=== PATIENT | male | born 1950 | race Caucasian/White ===

== ENCOUNTER 2017-01-23 13:18 | Emergency (ER) | payer BC, OTHER ==
[~2017-01-23] VITALS: Ht 180.3 cm; Wt 127.2 kg
[~2017-01-23 13:18] MED LIST: ASPI81TA28 PO; ATOR10TA82 PO; HYDR25TA5 PO; LSN40 PO; MULTTAB58 PO; OMEGA RED PO; TPRSR/100 PO
[2017-01-23 13:26] VITALS: TEMP 36.6; Ht 180.3 cm; Wt 127.2 kg
[2017-01-23] MEDS ORDERED: XYLOCAINE 1%/SOD BICARB 20 ML VIAL INFIL ONE (13:37)
[2017-01-23] MEDS ORDERED: CEFAZOLIN IV 1,000 MG in DEXTROSE 5% 50ML 50 ML IV STA (13:57)
--- NOTE | 2017-01-23 14:30 | DIAGNOSTIC IMAGING REPORT ---
LEFT MIDDLE FINGER 3 VIEWS HISTORY: Left finger injury. LEFT FINGER AMP/AVULSION COMPARISON: None. FINDINGS: There is no fracture or dislocation. Soft tissue laceration at the distal tip. No radiopaque foreign bodies. IMPRESSION: Soft tissue laceration at the distal tip of the left middle finger. No fracture or dislocation. Electronically signed by: Kamron Cuellar M.D. 01/23/2017 2:29 PM Dictated Date/Time: 01/23/2017 2:28 PM
[2017-01-23 15:20] VITALS: BP 133/73; PULSE 61; O2SAT 94
[2017-01-23] MEDS ORDERED: CEPH500C PO (15:35)
[2017-01-23] MEDS ORDERED: OXYC1TAB3 PO (15:35)
--- NOTE | 2017-01-23 16:40 | EMERGENCY ROOM VISIT NOTE ---
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 pt reports "the nail is hanging there and some of the finger too." happend at 1315 today while pt was at work. 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 He reports that his finger was crushed during the process. He was wearing a glove. He reports an injury to the fingertip without any significant bleeding. He rates his discomfort a 3 out of 10. The patient is certain that his tetanus immunization is up-to-date within the past 5-7 years. The patient is left-hand dominant. Review of Systems 10 system review was performed and was negative except for pertinent positives and negatives as indicated in history of present illness Past Medical/Surgical History Medical Problems: (1) Diverticulosis Colon (W/O Ment Of Hemorrhage) (2) Hx-Prostatic Malignancy (3) Hypertension Nos (4) Polyp Of Colon (5) Primary Osteoarthritis, Left Shoulder (6) Unspecified Sleep Apnea (7) Vitamin D Deficiency Nos Family History Unremarkable Social History Smoking Status: Never Smoker Alcohol Use: occasionally Drug Use: none Marital Status: Housing Status: lives with family Occupation Status: employed Current/Historical Medications Scheduled Aspirin (Aspirin Ec), 81 MG PO QAM Atorvastatin (Lipitor), 10 MG PO HS Cephalexin Monohydrate (Keflex), 500 MG PO QID Hydrochlorothiazide (Hydrochlorothiazide), 1 TAB PO QAM Lisinopril (Lisinopril), 1 TAB PO QAM Metoprolol Succinate (Metoprolol Succinate ER), 1 TAB PO QAM Multiple Vitamin (Multivitamin), 1 TAB PO QAM [[employer] Red], 1 TAB PO QAM Scheduled PRN Oxycodone Ir (Roxicodone Ir), 1-2 TAB PO Q4H PRN for Pain Allergies Coded Allergies: No Known Allergies (Verified , 01/23/17) Physical Exam Vital Signs Date Time Temp Pulse Resp B/P Pulse Ox O2 Delivery O2 Flow Rate FiO2 01/23/17 15:20 61 20 133/73 94 Room Air 01/23/17 13:26 36.6 80 18 185/98 99 Room Air Pain Rating (0-10): 0 Physical Exam CONSTITUTIONAL: Healthy and well nourished. Alert and oriented X 3 with positive affect. HEENT: Normocephalic, atraumatic. Pupils equal, round and reactive. MUSCULOSKELETAL: Examination of the left third finger shows a complex laceration of the fingertip. The laceration traverses transversely across the distal third of the nail plate, down through the tissue and across the digital pad. The resolving flap is attached on the ulnar tip of the finger. No active bleeding noted. The proximal nail plate is not subluxed. The underlying tuft is exposed. No tenderness to palpation of the DIP or PIP joints. Fingertip capillary refill is less than 2 seconds. INTEGUMENTARY: No rash or other significant dermatologic conditions noted. NEUROLOGIC: Left third fingertip is sensory intact. Medical Decision & Procedures ER Provider Diagnostic Interpretation: My interpretation of left third finger x-rays does not show any acute fractures , dislocations or radiopaque foreign bodies. Radiologist report is as follows: LEFT MIDDLE FINGER 3 VIEWS HISTORY: Left finger injury. LEFT FINGER AMP/AVULSION COMPARISON: None. FINDINGS: There is no fracture or dislocation. Soft tissue laceration at the distal tip. No radiopaque foreign bodies. IMPRESSION: Soft tissue laceration at the distal tip of the left middle finger. No fracture or dislocation. Medications Administered Medications (Trade) Dose Ordered Sig/Renata Route Start Time Stop Time Status Last Admin Dose Admin Cefazolin Sodium/ Dextrose (Ancef Iv/D5 50ml) 55 ml @ 100 mls/hr ONE STAT IV 01/23/17 13:57 01/23/17 14:29 DC 01/23/17 14:31 100 MLS/HR Procedure Laceration repair was performed under digital block anesthesia after receiving verbal consent from the patient. Using buffered 1% lidocaine without epinephrine, good digital block anesthesia was administered. At this point, the wound was then irrigated using pressure lavage using 2 L of normal saline. The wound was then approximated at the ulnar and lateral nail fold first, then the digital pad was further approximated using 4-0 nylon simple interrupted sutures. There was only nail plate on the flap was then carefully removed, and the wound was then further reirrigated. Using 4-0 chromic gut sutures, the underlying nail bed laceration was then approximated with good wound edge approximation. A bacitracin dressing was then applied. The patient tolerated the procedure well. ED Course Patient history and physical exam were performed. Nurse's notes were reviewed. IV access was established, and the patient was administered Ancef 1 g IV infusion. The patient initially refused any analgesics. X-rays of the left third finger were normal. At this point, I consult did Dr. Samano, orthopedic surgeon on-call, who provided additional guidance on wound edge approximation. Wound irrigation and suture repair was performed under digital block anesthesia. The patient was provided prescriptions for Keflex and OxyIR 5 mg. He was provided contact information for Dr. Samano for follow-up in one week at Dr. Samano's request. The patient was instructed to call his office sooner for any wound concerns or signs of infection, or may also return to the emergency department over the weekend as needed. The patient was happy with plan of care , voiced understanding of all discharge instructions, and denied any pain at the conclusion of my exam. Medical Decision Impression Primary Impression: Left long finger laceration, complex Additional Impression: Work related injury Departure Information Dispostion Home / Self-Care Prescriptions Oxycodone Ir (Roxicodone Ir) 5 Mg Tab 1-2 TAB PO Q4H Y for Pain, #15 TAB For Initial Treatment Prov: Kishore Rodriguez PA 01/23/17 Cephalexin Monohydrate (Keflex) 500 Mg Cap 500 MG PO QID for 7 Days, #28 CAP Prov: Kishore Rodriguez PA 01/23/17 Referrals Ben Samano MD Forms HOME CARE DOCUMENTATION FORM, IMPORTANT VISIT INFORMATION Patient Instructions My [facility] Additional Instructions Keep wound clean, covered with antibiotic ointment and dry. Ibuprofen 800 mg and/or Tylenol 1000 mg every 8 hours. You may also alternate these medications for more effective pain relief: Ibuprofen --4 HRS--> Tylenol --4 HRS--> ibuprofen --4 HRS--> Tylenol .... OxyIR if needed for worse pain. Do not drink alcohol or drive while taking OxyIR. Complete Keflex antibiotics as prescribed. Follow-up with Dr. Samano in 7 days for recheck. Call his office sooner, or return to the emergency department, for any signs of developing infection. Problem Qualifiers
== END 2017-01-23 15:55 | disposition home or self-care (01) ==
LOC: C.EDB 13:20 → C.EDD 15:55
DX: S61.318A Laceration without foreign body of other finger with damage to nail, initial encounter (principal); W45.8XXA Other foreign body or object entering through skin, initial encounter; Y92.89 Other specified places as the place of occurrence of the external cause; Y99.0 Civilian activity done for income or pay; I10 Essential (primary) hypertension; K57.30 Diverticulosis of large intestine without perforation or abscess without bleeding; M19.012 Primary osteoarthritis, left shoulder; G47.30 Sleep apnea, unspecified; Z86.010 Personal history of colon polyps; Z85.46 Personal history of malignant neoplasm of prostate; Z79.82 Long term (current) use of aspirin; Z79.899 Other long term (current) drug therapy

== ENCOUNTER → 2017-01-30 | Outpatient (CLI) | payer OTHER, BC ==
[~2017-01-30] MED LIST changes: +CEPH500C PO; +OXYC1TAB3 PO
--- NOTE | 2017-01-30 14:23 | DIAGNOSTIC IMAGING REPORT ---
LEFT THIRD FINGER 3 VIEWS CLINICAL HISTORY: Laceration. FINDINGS: 3 views of the left third finger are compared to study dated 01/23/2017. The skeletal structures are well mineralized. No fracture is seen. The third metacarpophalangeal and interphalangeal joints are maintained. Mild soft tissue swelling is seen in the tip of the third finger and a cutaneous defect is again noted consistent with laceration. No radiodense foreign body is identified. IMPRESSION: 1. Soft tissue injury/laceration at the tip of the third finger, similar in appearance to 01/23/2017. No radiodense foreign body is identified. 2. No fracture is seen. Electronically signed by: Anibal Navarrete M.D. 01/30/2017 2:21 PM Dictated Date/Time: 01/30/2017 2:20 PM
== END | disposition home or self-care (01) ==
LOC: C.RDSM 14:10
PROVIDERS: ATTEND Physician Assistant
DX: S61.218A Laceration without foreign body of other finger without damage to nail, initial encounter (principal); X58.XXXA Exposure to other specified factors, initial encounter

== ENCOUNTER → 2017-03-11 | Outpatient (CLI) | payer OTHER, BC ==
[~2017-03-11] MED LIST changes: -ATOR10TA82 PO; +ATOR10TA88 PO; -CEPH500C PO
--- NOTE | 2017-03-11 13:46 | DIAGNOSTIC IMAGING REPORT ---
LEFT FINGER(S) MIN 2 VIEWS HISTORY:66 yearsMaleLEFT 3RD FINGER LACERATION COMPARISON: 01/30/2017 and 525 left finger radiographs. TECHNIQUE: Frontal, oblique and lateral views of the left third digit. FINDINGS: The previously noted soft tissue laceration of the distal third digit is no longer identified. No soft tissue defect or radiopaque foreign body is identified. There is no acute fracture or dislocation. Mild degenerative changes are seen within the interphalangeal and metacarpal phalangeal joints. There is mild osteoarthritis of the triscaphe joint and first carpometacarpal joint. IMPRESSION: 1. No acute fracture or dislocation. 2. No soft tissue laceration or radiopaque foreign body. 3. Mild degenerative changes of the wrist and hand. The above report was generated using voice recognition software. It may contain grammatical, syntax or spelling errors. Electronically signed by: Quan Hernandez M.D. 03/11/2017 1:45 PM Dictated Date/Time: 03/11/2017 1:43 PM
== END | disposition home or self-care (01) ==
LOC: C.RDSM 13:19
PROVIDERS: ATTEND Physician Assistant
DX: S61.313D Laceration without foreign body of left middle finger with damage to nail, subsequent encounter (principal); X58.XXXD Exposure to other specified factors, subsequent encounter

== ENCOUNTER → 2017-06-17 | Outpatient (CLI) | payer BC, OTHER ==
[~2017-06-17] VITALS: Ht 180.3 cm; Wt 125.5 kg
[2017-06-17 13:23] VITALS: BP 164/93; PULSE 65; Ht 180.3 cm; Wt 125.5 kg
[2017-06-17 13:24] VITALS: BP 157/89; PULSE 62
== END | disposition home or self-care (01) ==
LOC: C.NEUR 12:52
PROVIDERS: ATTEND Physician Assistant Medical
DX: G47.30 Sleep apnea, unspecified (principal); I10 Essential (primary) hypertension; R20.0 Anesthesia of skin

== ENCOUNTER → 2017-12-31 | Outpatient (CLI) | payer BC ==
[~2017-12-31] MED LIST changes: +ATOR10TA82 PO; -ATOR10TA88 PO; -OXYC1TAB3 PO
[2017-12-31 16:27] LABS: BASO % 0.1 %; BASO ABS # 0.01 K/uL (0-0.2); EOS % 3.9 %; HEMATOCRIT 40.8 % (42-52); HEMOGLOBIN 14.2 g/dL (14.0-18.0); IG# 0.02 K/uL (0.00-0.02); LYMPH % 33.6 %; MEAN CELL VOLUME 89.7 fL (80-100); MEAN CORPUSCULAR HEMOGLOBIN 31.2 pg (25-34); MEAN CORPUSCULAR HGB CONC 34.8 g/dl (32-36); MEAN PLATELET VOLUME 9.6 fL (7.4-10.4); MONO % 7.6 %; MONO ABS # 0.59 K/uL (0.11-0.59); NEUT % 54.5 %; NEUT ABS # 4.21 K/uL (1.4-6.5); PLATELET COUNT 246 K/uL (130-400); RED CELL DISTRIBUTION WIDTH CV 13.3 % (11.5-14.5); RED CELL DISTRIBUTION WIDTH SD 43.3 fL (36.4-46.3); WHITE BLOOD COUNT 7.73 K/uL (4.8-10.8)
[2017-12-31 16:44] LABS: ALBUMIN 3.8 gm/dl (3.4-5.0); AST/SGOT 37 U/L (15-37); BLOOD UREA NITROGEN 19 mg/dl (7-18); CALCIUM 8.6 mg/dl (8.5-10.1); CARBON DIOXIDE 28 mmol/L (21-32); CHOLESTEROL 146 mg/dl (0-200); CREATININE 0.86 mg/dl (0.60-1.40); GLUCOSE 108 mg/dl (70-99); POTASSIUM 3.7 mmol/L (3.5-5.1); SODIUM 140 mmol/L (136-145)
[2017-12-31 16:47] LABS: ALKALINE PHOSPHATASE 74 U/L (45-117); ALT/SGPT 48 U/L (12-78); LDL CHOLESTEROL CALCULATED 66 mg/dl; TOTAL PROTEIN 7.2 gm/dl (6.4-8.2)
[2018-01-01 06:36] LABS: HEMOGLOBIN A1C 5.5 % (4.5-5.6)
== END | disposition home or self-care (01) ==
LOC: C.LABBFT 13:35
PROVIDERS: ATTEND Internal Medicine
DX: E55.9 Vitamin D deficiency, unspecified (principal); E78.00 Pure hypercholesterolemia, unspecified; R73.01 Impaired fasting glucose; I10 Essential (primary) hypertension

== ENCOUNTER 2018-01-23 08:29 | Emergency (ER) | payer BC ==
[~2018-01-23] VITALS: Ht 181.6 cm; Wt 127.4 kg
[2018-01-23 08:31] VITALS: Ht 181.6 cm; Wt 127.4 kg
[2018-01-23] MEDS ORDERED: SODIUM CHLORIDE 0.9% 1000ML 1,000 ML IV STA (08:44)
[2018-01-23] MEDS ORDERED: ONDANSETRON INJ 2 MG/ML 2 ML VIAL IV STA (08:44)
--- NOTE | 2018-01-23 08:51 | EMERGENCY ROOM VISIT NOTE ---
History Report prepared by Janel: Brayden Terry Under the Supervision of: Dr. Jeb Mireles M.D. First contact with patient: 08:35 Chief Complaint: VERTIGO Stated Complaint: DIZZINESS/NAUSEA/VOMITING History of Present Illness The patient is a 67 year old male who presents to the Emergency Room with complaints of constant dizziness beginning 1.5 hours ago. The patient states he felt extremely dizzy and lied down on the barrios of the car. He reports when he opened his eyes, the car barrios was spinning. The patient notes he does not know if he lost consciousness. He states he has headache currently and rates it a 3/ 10 in severity. The patient reports he vomited, no coffee-ground emesis, hematemesis, or bilious vomiting.. He notes he has a history of HTN, high cholesterol, and prostate cancer. The patient states his prostate was removed. The family found the patient on the ground, and they state he lied on the ground willing. They also expressed concern for a possible tick bite. Source of History: patient, family Onset: 1.5 hours ago Quality: other (dizziness) Timing: constant Associated Symptoms: + headache (3/10), + vomiting Review of Systems See HPI for pertinent positives and negatives. A total of ten systems were reviewed and were otherwise negative. Past Medical & Surgical Medical Problems: (1) Diverticulosis Colon (W/O Ment Of Hemorrhage) (2) Hx-Prostatic Malignancy (3) Hypertension Nos (4) Polyp Of Colon (5) Primary Osteoarthritis, Left Shoulder (6) Unspecified Sleep Apnea (7) Vitamin D Deficiency Nos Family History Cancer Diabetes mellitus Heart disease Hypertension Social History Smoking Status: Never Smoker Alcohol Use: occasionally Drug Use: none Marital Status: Housing Status: lives with family Occupation Status: employed Current/Historical Medications Scheduled Aspirin (Aspirin Ec), 81 MG PO QAM Atorvastatin (Lipitor), 10 MG PO HS Doxycycline Monohydrate (Monodox), 100 MG PO BID Hydrochlorothiazide (Hydrochlorothiazide), 1 TAB PO QAM Lisinopril (Lisinopril), 1 TAB PO QAM Meloxicam (Mobic), 15 MG PO DAILY Metoprolol Succinate (Metoprolol Succinate ER), 1 TAB PO QAM Multiple Vitamin (Multivitamin), 1 TAB PO QAM [[place] Red], 1 TAB PO QAM Scheduled PRN Meclizine Hcl (Meclizine Hcl), 1 TAB PO TID PRN for Dizziness or Vertigo Allergies Coded Allergies: No Known Allergies (Verified , 01/23/18) Physical Exam Vital Signs Date Time Temp Pulse Resp B/P (MAP) Pulse Ox O2 Delivery O2 Flow Rate FiO2 01/23/18 11:11 157/90 01/23/18 10:43 63 20 112/91 92 Room Air 01/23/18 10:06 65 20 147/90 96 Nasal Cannula 2.0 01/23/18 09:31 92 Nasal Cannula 2.0 01/23/18 09:28 58 18 148/81 94 Room Air 01/23/18 09:00 36.3 01/23/18 08:45 61 01/23/18 08:31 59 22 155/85 97 Room Air Physical Exam Physical Exam GENERAL: He is oriented to person, place, and time. He appears well-developed and well-nourished. He does not appear distressed. ____ HENT: Exam performed. Head: Normocephalic and atraumatic. Right Ear: External ear normal. No mastoid tenderness. Left Ear: External ear normal. No mastoid tenderness. Mouth/Throat: The oropharynx is clear and moist. No trismus in the jaw. No dental abscesses or uvula swelling. No oropharyngeal exudate or tonsillar abscesses. ____ EYES: Conjunctivae and EOM are normal. Pupils are equal, round, and reactive to light. Right eye exhibits no discharge. Left eye exhibits no discharge. No scleral icterus. Nystagmus present on examination.____ NECK: Normal range of motion. Neck supple. No JVD present. No spinous process tenderness present. No carotid bruit present. No rigidity. No tracheal deviation and normal range of motion present. No Brudzinski's sign and no Kernig 's sign noted. ____ CV: Normal rate, regular rhythm, normal heart sounds and intact distal pulses. There is no peripheral edema. Palpable radial pulses bue. ____ PULM/CHEST: Effort normal and breath sounds normal. No respiratory distress. No stridor. He has no wheezes. He has no rales. Chest Wall: He exhibits no tenderness. ____ ABD: The abdomen is soft. Bowel sounds are normal. He has no distension. No mass is present. There is no tenderness. There is no rebound, no guarding, no Lopez's sign and no tenderness at McBurney's point. Rovsig negative MUSC/SKEL: Normal range of motion. There is no peripheral edema, tenderness or deformity. LYMPH: No cervical adenopathy. ____ NEURO: He is alert and oriented to person, place, and time. He has normal strength. No cranial nerve deficit or sensory deficit. GCS eye subscore is 4. GCS verbal subscore is 5. GCS motor subscore is 6. Cerebellar tests wnl. ____ SKIN: Skin is warm and dry. He is not diaphoretic. ____ PSYCH: He has a normal mood and affect. His behavior is normal. Judgment and thought content normal. ____ Medical Decision & Procedures ER Provider Diagnostic Interpretation: Radiology results as stated below per my review and radiologist interpretation: HEAD WITHOUT CONTRAST (CT) CLINICAL HISTORY: 67 years-old Male presenting with dizziness, nausea and vomiting. TECHNIQUE: Multidetector CT imaging of the head was performed without the use of intravenous contrast. IV contrast: None. A dose lowering technique was used consistent with the principles of ALARA (as low as reasonably achievable). COMPARISON: None. CT DOSE (mGy.cm): The estimated cumulative dose is 823.94 mGycm. FINDINGS: Shuttlecock Feather Trimmer topogram: Unremarkable. Ventricles and sulci normal in size. Brain parenchyma normal in appearance with preserved carvalho-white differentiation. No mass effect or midline shift. No hemorrhage or acute territorial infarct. No extra-axial fluid collection. Paranasal sinuses and mastoid air cells clear. Calvarium intact. IMPRESSION: 1. No acute intracranial abnormality. Electronically signed by: Jeffrey Zimmerman M.D. 01/23/2018 9:14 AM Dictated Date/Time: 01/23/2018 9:13 AM Laboratory Results 01/23/18 07:58 Red Blood Count 4.51, Mean Corpuscular Volume 87.6, Mean Corpuscular Hemoglobin 32.2, Mean Corpuscular Hemoglobin Concent 36.7, Mean Platelet Volume 9.0, Neutrophils (%) (Auto) 44.5, Lymphocytes (%) (Auto) 42.3, Monocytes (%) (Auto) 8.1, Eosinophils (%) (Auto) 4.7, Basophils (%) (Auto) 0.2, Neutrophils # (Auto) 4.08, Lymphocytes # (Auto) 3.88, Monocytes # (Auto) 0.74, Eosinophils # (Auto) 0.43, Basophils # (Auto) 0.02 01/23/18 07:58 Test 01/23/18 07:58 White Blood Count 9.17 K/uL (4.8-10.8) Red Blood Count 4.51 M/uL (4.7-6.1) Hemoglobin 14.5 g/dL (14.0-18.0) Hematocrit 39.5 % (42-52) Mean Corpuscular Volume 87.6 fL (80-100) Mean Corpuscular Hemoglobin 32.2 pg (25-34) Mean Corpuscular Hemoglobin Concent 36.7 g/dl (32-36) Platelet Count 208 K/uL (130-400) Mean Platelet Volume 9.0 fL (7.4-10.4) Neutrophils (%) (Auto) 44.5 % Lymphocytes (%) (Auto) 42.3 % Monocytes (%) (Auto) 8.1 % Eosinophils (%) (Auto) 4.7 % Basophils (%) (Auto) 0.2 % Neutrophils # (Auto) 4.08 K/uL (1.4-6.5) Lymphocytes # (Auto) 3.88 K/uL (1.2-3.4) Monocytes # (Auto) 0.74 K/uL (0.11-0.59) Eosinophils # (Auto) 0.43 K/uL (0-0.5) Basophils # (Auto) 0.02 K/uL (0-0.2) RDW Standard Deviation 41.1 fL (36.4-46.3) RDW Coefficient of Variation 12.8 % (11.5-14.5) Immature Granulocyte % (Auto) 0.2 % Immature Granulocyte # (Auto) 0.02 K/uL (0.00-0.02) Anion Gap 9.0 mmol/L (3-11) Est Creatinine Clear Calc Drug Dose 113.3 ml/min Estimated GFR () 104.0 Estimated GFR (Non- 89.7 BUN/Creatinine Ratio 23.5 (10-20) Calcium Level 8.5 mg/dl (8.5-10.1) Lyme Disease IgG Antibody NEG (NEG) Laboratory results reviewed by me Medications Administered Medications (Trade) Dose Ordered Sig/Renata Route Start Time Stop Time Status Last Admin Dose Admin Sodium Chloride 1,000 ml @ 999 mls/hr Q1H1M STAT IV 01/23/18 08:44 01/23/18 09:44 DC 01/23/18 08:51 999 MLS/HR Ondansetron HCl (Zofran Inj) 4 mg NOW STAT IV 01/23/18 08:44 01/23/18 08:46 DC 01/23/18 08:51 4 MG Prochlorperazine Edisylate (Compazine Inj) 10 mg NOW STAT IV 01/23/18 09:21 01/23/18 09:22 DC 01/23/18 09:28 10 MG Diphenhydramine HCl (Benadryl Inj) 25 mg NOW STAT IV 01/23/18 09:21 01/23/18 09:22 DC 01/23/18 09:26 25 MG Meclizine HCl (Antivert Tab) 25 mg NOW STAT PO 01/23/18 09:31 01/23/18 09:33 DC 01/23/18 09:43 25 MG Doxycycline Hyclate (Vibramycin Cap) 100 mg ONE ONCE PO 01/23/18 10:15 01/23/18 10:16 DC 01/23/18 10:43 100 MG ECG Per My Interpretation Indication: other (dizziness) Rate (beats per minute): 60 Rhythm: sinus rhythm Findings: 1st degree AV block, T-wave inversion (Lead III), other (NM interval of 202, QRS and QTc wnl.) Comparison ECG Date: 06/04/2016 Change: no significant change ED Course 0841: The patient was evaluated in room A10. A complete history and physical exam was performed. 0844: Ordered Ondansetron HCl 4mg IV, Sodium Chloride 1000 ml @ 999 mls/hr IV 0921: Ordered Diphenhydramine HCl 25mg IV, Prochlorperazine Edisylate 10mg IV 0928: I reevaluated the patient. He is still dizzy and nauseous. 0931: Ordered Meclizine HCl 25mg PO 1011: The patient is feeling better upon reevaluation. He no loner has nystagmus on examination. Ambulating without difficulty. Labs within normal limits with the exception of a equivocal Lyme titer. CT within normal limits. I discussed this with the family at bedside, including family member who is a nurse and confirmed with her that the Lyme screen will be sent out for Western blot. Given the patient's possible history of tick bite is equivocal Lyme screen, will treat empirically with doxycycline until confirmatory Western blot returns. 1015: Ordered Doxycycline Hyclate 100mg PO 1054: I reevaluated the patient. Vital stable. Pt is ambulating. Feels better after Antivert, Benadryl, and Compazine. Labs and imaging are wnl with the exception of an equivocal Lyme's Disease. Given the equivocal results and the families concern for a tick bit, the patient will be started on doxycycline. DISCHARGE - Plan of care discussed with patient and questions answered. The patient was given both verbal and printed discharge instructions. The patient verbalized understanding and ability to comply. The patient is to seek outpatient follow up as noted in the discharge instructions. The patient verbalized understanding and ability to comply. The patient is discharged in stable condition. The patient was instructed to return for worsening symptoms. Medical Decision 0841: The patient was evaluated in room A10. A complete history and physical exam was performed. 0844: Ordered Ondansetron HCl 4mg IV, Sodium Chloride 1000 ml @ 999 mls/hr IV 0921: Ordered Diphenhydramine HCl 25mg IV, Prochlorperazine Edisylate 10mg IV 0928: I reevaluated the patient. He is still dizzy and nauseous. 0931: Ordered Meclizine HCl 25mg PO 1011: The patient is feeling better upon reevaluation. He no loner has nystagmus on examination. Ambulating without difficulty. Labs within normal limits with the exception of a equivocal Lyme titer. CT within normal limits. I discussed this with the family at bedside, including family member who is a nurse and confirmed with her that the Lyme screen will be sent out for Western blot. Given the patient's possible history of tick bite is equivocal Lyme screen, will treat empirically with doxycycline until confirmatory Western blot returns. 1015: Ordered Doxycycline Hyclate 100mg PO 1054: I reevaluated the patient. Vital stable. Pt is ambulating. Feels better after Antivert, Benadryl, and Compazine. Labs and imaging are wnl with the exception of an equivocal Lyme's Disease. Given the equivocal results and the families concern for a tick bit, the patient will be started on doxycycline. DISCHARGE - Plan of care discussed with patient and questions answered. The patient was given both verbal and printed discharge instructions. The patient verbalized understanding and ability to comply. The patient is to seek outpatient follow up as noted in the discharge instructions. The patient verbalized understanding and ability to comply. The patient is discharged in stable condition. The patient was instructed to return for worsening symptoms. Medication Reconcilliation Current Medication List: was personally reviewed by me Blood Pressure Screening Patient's blood pressure: Normal blood pressure Blood pressure disposition: Did not require urgent referral Impression Primary Impression: Vertigo Scribe Attestation The scribe's documentation has been prepared under my direction and personally reviewed by me in its entirety. I confirm that the note above accurately reflects all work, treatment, procedures, and medical decision making performed by me. The chart was completed utilizing [employer] Speech voice recognition software. Grammatical errors, random word insertions, pronoun errors, and incomplete sentences are an occasional consequence of this system due to software limitations, ambient noise, and hardware issues. Any formal questions or concerns about the content, text, or information contained within the body of this dictation should be directly addressed to the physician for clarification. Departure Information Dispostion Home / Self-Care Prescriptions Doxycycline Monohydrate (Monodox) 100 Mg Cap 100 MG PO BID for 14 Days, #28 CAP Prov: Jeb Mireles M.D. 01/23/18 Meclizine Hcl (MECLIZINE HCL) 25 Mg Tab 1 TAB PO TID Y for Dizziness or Vertigo for 10 Days, #30 TAB Prov: Jeb Mireles M.D. 01/23/18 Referrals Ludwin Gunter M.D. (PCP) Forms HOME CARE DOCUMENTATION FORM, IMPORTANT VISIT INFORMATION, WORK / SCHOOL INSTRUCTIONS Patient Instructions My [facility], Vertigo Paroxysmal Positional Additional Instructions Return to the emergency department if you develop fever greater than 100.4, severe headache, numbness, difficult he walking, changes in vision, seizure, or inability to ambulate. Follow-up in 3-5 business days with the results of your Lyme disease Western blot confirmatory test.
[2018-01-23 08:56] LABS: BASO % 0.2 %; BASO ABS # 0.02 K/uL (0-0.2); EOS % 4.7 %; EOS ABS # 0.43 K/uL (0-0.5); HEMATOCRIT 39.5 % (42-52); HEMOGLOBIN 14.5 g/dL (14.0-18.0); IG# 0.02 K/uL (0.00-0.02); LYMPH % 42.3 %; LYMPH ABS # 3.88 K/uL (1.2-3.4); MEAN CELL VOLUME 87.6 fL (80-100); MEAN CORPUSCULAR HEMOGLOBIN 32.2 pg (25-34); MEAN CORPUSCULAR HGB CONC 36.7 g/dl (32-36); MONO % 8.1 %; MONO ABS # 0.74 K/uL (0.11-0.59); NEUT % 44.5 %; NEUT ABS # 4.08 K/uL (1.4-6.5); PLATELET COUNT 208 K/uL (130-400); RED CELL DISTRIBUTION WIDTH CV 12.8 % (11.5-14.5); RED CELL DISTRIBUTION WIDTH SD 41.1 fL (36.4-46.3); WHITE BLOOD COUNT 9.17 K/uL (4.8-10.8)
[2018-01-23 09:00] VITALS: TEMP 36.3
[2018-01-23 09:12] LABS: CALCIUM 8.5 mg/dl (8.5-10.1); CREATININE 0.89 mg/dl (0.60-1.40); POTASSIUM 3.5 mmol/L (3.5-5.1)
--- NOTE | 2018-01-23 09:16 | DIAGNOSTIC IMAGING REPORT ---
HEAD WITHOUT CONTRAST (CT) CLINICAL HISTORY: 67 years-old Male presenting with dizziness, nausea and vomiting. TECHNIQUE: Multidetector CT imaging of the head was performed without the use of intravenous contrast. IV contrast: None. A dose lowering technique was used consistent with the principles of ALARA (as low as reasonably achievable). COMPARISON: None. CT DOSE (mGy.cm): The estimated cumulative dose is 823.94 mGycm. FINDINGS: Disk Sander topogram: Unremarkable. Ventricles and sulci normal in size. Brain parenchyma normal in appearance with preserved carvalho-white differentiation. No mass effect or midline shift. No hemorrhage or acute territorial infarct. No extra-axial fluid collection. Paranasal sinuses and mastoid air cells clear. Calvarium intact. IMPRESSION: 1. No acute intracranial abnormality. Electronically signed by: Jeffrey Zimmerman M.D. 01/23/2018 9:14 AM Dictated Date/Time: 01/23/2018 9:13 AM
[2018-01-23] MEDS ORDERED: PROCHLORPERAZINE 5 MG/ML 2 ML VIAL IV STA (09:21)
[2018-01-23] MEDS ORDERED: DiphenhydrAMINE HCL 50 MG/ML VIAL IV STA (09:21)
[2018-01-23 09:31] VITALS: O2SAT 92
[2018-01-23] MEDS ORDERED: MECLIZINE HCL 25 MG TAB PO STA (09:31)
[2018-01-23] MEDS ORDERED: DOXYCYCLINE HYCLATE 100 MG CAP PO ONE (10:15)
[2018-01-23 10:43] VITALS: PULSE 63; O2SAT 92
[2018-01-23] MEDS ORDERED: MELO15TA10 PO (10:49)
[2018-01-23] MEDS ORDERED: MECL1TAB42 PO (10:51)
[2018-01-23] MEDS ORDERED: DOXY100C76 PO (10:52)
[2018-01-23 11:11] VITALS: BP 157/90
== END 2018-01-23 11:13 | disposition home or self-care (01) ==
LOC: C.EDA 08:29 → EDBD 08:29 → C.EDA 11:13
DX: R42 Dizziness and giddiness (principal); K57.90 Diverticulosis of intestine, part unspecified, without perforation or abscess without bleeding; I10 Essential (primary) hypertension; M19.90 Unspecified osteoarthritis, unspecified site

== ENCOUNTER 2025-04-15 12:03 | Observation (INO) ==
[2025-04-15] MEDS: ONDANSETRON INJ 2 MG/ML 2 ML VIAL IV STA (12:37)
[2025-04-15] MEDS: SODIUM CHLORIDE 0.9% 1,000 ML IV ONE (12:38)
[2025-04-15] MEDS: ACETAMINOPHEN 1,000 MG/100 ML VIAL IV STA (12:38)
--- NOTE | 2025-04-15 12:40 | Emergency Department Note ---
Impression & Plan Exertional chest pain, Neck pain, Ascending aorta dilation, Acute upper back pain ED Provider Note NAME: ABIOLA ZHOU AGE: 74 SEX: M : 1950 ARRIVES VIA: Ambulance INFORMANT: Patient ED PROVIDER(S): Rafi Ambrocio MD CHIEF COMPLAINT: exertional chest, neck and back pain PLAN: Disposition: Admit MEDICAL DECISION MAKING: The patient is a pleasant 74-year-old gentleman with a past medical history of hypertension, hyperlipidemia who presents to the emergency department via EMS from the [facility] for evaluation of exertional chest, neck and back pain in between his "shoulder blades" which 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 He reports he had similar symptoms yesterday which resolved with rest. He denies shortness of breath. He reports associated nausea. He reports mild headache associated with his neck pain. He reports his father had a history of an abdominal aneurysm. Patient reports he did have a heart catheterization in 2020 for evaluation of chest pain which he understands did not show anything concerning. He denies any recent fevers, chills, cough congestion, symptoms. On evaluation the patient no distress, afebrile with stable vital signs. He appears clinically dry. He reports reproducible discomfort of the paraspinal muscles between his scapula though acknowledges that this is a different pain than what brought him here. Pulses are equal in bilateral upper extremities. There are no bruits on auscultation of the neck. EKG without overt acute ischemia. CXR negative for acute cardiopulmonary process per my personal preliminary review/interpretation. WBC and platelets normal limits. H/H approximate to prior values. Chemistry without metabolic acidosis. BUN/creatinine 30 consistent with patient's clinical dry appearance. Electrolytes and Lifteez unremarkable. Initial high- sensitivity troponin 3.5, within normal limits. Lipase is normal. TSH within normal limits. UA without evidence of infection. CT of the chest with dissection protocol was negative for acute aortic pathology though did describe mild fusiform dilatation of the ascending aorta measuring 4 cm. No evidence of PE centrally. Mildly enlarged and partially calcified mediastinal and hilar lymph nodes noted. CT of the head and CTA of the head and neck were performed and were negative for acute abnormalities. Upon evaluation patient did report feeling improved following IV hydration, IV APAP and Zofran. However given the patient's exertional pattern of symptoms, cardiac etiology still considered. Heart score 4, moderate risk. Patient agrees with plan for admission for further management. Full dose aspirin administered. Case was discussed with SHELBY Martin PAC, with KELLIE Wick hospitalist who will evaluate the patient for admission. Further management per admitting team. Triage Nursing notes reviewed and agree them. Prior/external medical records reviewed Vital Signs: reviewed Differential diagnosis: Cardiac ischemia, aortic dissection, pulmonary embolism, pneumothorax, pneumonia, pericarditis, myocarditis, esophageal rupture, GERD, cholecystitis, pancreatitis, musculoskeletal, as well as other pathologies. ER treatment provided: See below. Diagnostics interpreted by me: ECG: Sinus bradycardia, first-degree block, 55 bpm, no ectopy, inferior T wave abnormalities similar to prior, no overt ST elevation or depression, QTc 428, QRS 106. Cardiac Monitoring: An order for continuous cardiac monitoring was placed and demonstrated sinus bradycardia, first-degree block, 55 bpm, no ectopy. Laboratory studies: See below Imaging studies: See below Consultation(s): Case was discussed with SHELBY Martin PAC, with KELLIE Wick hospitalist who will evaluate the patient for admission. HPI: Per MDM. ROS: See above HPI for pertinent positives & negatives. A total of 10 systems reviewed and were otherwise negative. VITALS:See Below PHYSICAL EXAMINATION: GENERAL: Awake, alert, well-appearing, in no distress HENT: Normocephalic, atraumatic. Oropharynx with dry mucous membranes and otherwise unremarkable EYES: Normal conjunctiva. Sclera non-icteric. EOMI. No nystamgus. PEARRL. NECK: Supple. No nuchal rigidity. FROM. No JVD. RESPIRATORY: Clear to auscultation. CARDIAC: Regular rate, normal rhythm. Extremities warm and well perfused. Pulses equal. ABDOMEN: Soft, non-distended. No tenderness to palpation. No rebound or guarding. No masses. MUSCULOSKELETAL: Chest examination reveals no tenderness. The back is symmetrical on inspection without obvious abnormality. There is no CVA tenderness to palpation. No joint edema. LOWER EXTREMITIES: Calves are equal size bilaterally and non-tender. No edema. No discoloration. NEURO: Cranial nerves II-XII grossly intact. 5/5 strength and SILT x 4 extremities. SKIN: No rash or jaundice noted. Rafi Ambrocio MD Past Med/Surg History Problem List (Updated 04/16/25 @ 01:50 by Rafi Ambrocio MD) Acute upper back pain (Acute) Ascending aorta dilation (Acute) Neck pain (Acute) Exertional chest pain (Acute) Exertional angina Sensorineural hearing loss (SNHL) of both ears Morbid obesity due to excess calories Tendonitis of left rotator cuff Nocturnal hypoxemia Trochanteric bursitis, left hip Osteoarthritis of left knee Trochanteric bursitis of right hip Radicular low back pain Osteoarthritis of right hip Vertigo Onychomycosis Hypertrophic toenail Family history of colon cancer Hypercholesteremia (Chronic) Primary osteoarthritis, left shoulder (Acute) Polyp of colon (Acute) Male erectile disorder of organic origin (Acute) Lumbar canal stenosis (Acute) Internal hemorrhoids (Acute) Impaired fasting glucose (Chronic) Hypertension (Chronic) Hx of prostatic malignancy (Acute ~2004) Status post radical prostatectomy and XRT, diagnosed age 54 Mild obstructive sleep apnea Osteoarthritis of right shoulder Medical History Vitamin D deficiency Spinal stenosis Osteoarthritis History of prostate cancer 15 years ago - treated surgically Hyperlipidemia HTN (hypertension) Sleep apnea CPAP Diverticulosis Surgical History History of tooth extraction History of arthroscopy of right knee History of arthroscopy of left knee History of colonoscopy History of radical retropubic prostatectomy (~2004) Family History Father Colon carcinoma Mother Myocardial infarction Breast cancer Brother Prostate cancer Brother Stroke Other Cancer Colorectal cancer Diabetes No family history of adverse response to anesthesia Denies family history of Ovarian cancer Social History Smoking Status: Never smoker Second Hand Exposure: Yes (Pt worked with a man that smoked a lot.); Do You Dip or Chew Tobacco: No; Hx Alcohol Use: No Hx Substance Use: No Preferred Language: Azerbaijani Communication Ability: Effective Visual Impairment: No Limitations Hearing Ability: Use of Hearing Aid Director Global Required: No Beliefs That Will Affect Care: None marital status: Current Living Situation: Spouse Current Living Situation Comment: 2 story house current occupational status: retired current occupation: used to work with the [email or web address] Feels Safe at Home: Yes Safety Concerns: Feels Safe At This Time Childhood Exposure to Second-Hand Smoke: Yes Diet: regular caffeine: Yes during the past year weight has: remained stable Dental Care, Regularly: Yes Physical Activity Frequency: Does not Exercise Seatbelt Use: always Sunscreen Use: No Assistive Devices: Hearing Aid - Bilateral Allergies Allergies Allergy/AdvReac Type Severity Reaction Status Date / Time No Known Allergies Allergy Verified 02/14/25 13:05 Home Meds Home Medications Medication Instructions Recorded Confirmed cholecalciferol (vitamin D3) 50 2,000 units PO QPM 08/23/20 04/15/25 mcg (2,000 unit) capsule tirzepatide (weight loss) 2.5 0 mg subcut .q7days 04/15/25 04/15/25 mg/0.5 mL subcutaneous pen injector (Zepbound) Previous Rx's Medication Instructions Recorded atenolol 50 mg tablet 50 mg PO QAM #90 tabs 06/30/24 atorvastatin 40 mg tablet (Lipitor) 40 mg PO DAILY #90 tabs 09/13/24 topiramate 100 mg tablet (Topamax) 100 mg PO DAILY #90 tabs 11/15/24 meclizine 25 mg tablet 25 mg PO TID PRN dizziness #30 tabs 02/14/25 lisinopril 40 mg tablet 40 mg PO QAM #90 tabs 02/22/25 amlodipine 2.5 mg tablet 2.5 mg PO DAILY 90 days #90 tabs 03/29/25 hydrochlorothiazide 50 mg tablet 50 mg PO DAILY 90 days #90 tabs 03/29/25 Results & Data (ED) Vital Signs Vital Signs - 24 hr 04/15/25 12:08 04/15/25 13:30 04/15/25 13:40 Temperature 36.8 C Temperature Source Temporal Artery Scan Pulse Rate 55 L 59 L 53 L Pulse Rate [Bilateral Apical] Respiratory Rate 18 18 Respiratory Effort / Characteristics Non-Labored Spontaneous Respiratory Depth Normal Respiratory Pattern Regular Blood Pressure 131/75 148/74 H Blood Pressure [Right Arm] Blood Pressure Mean 93 97 Blood Pressure Mean [Right Arm] Blood Pressure Position [Right Arm] Pulse Oximetry 96 96 Oxygen Delivery Method Room Air Sepsis Recent Fever Within 48 Hours No Sepsis New/Unexplained Change in Mental Status N/A Sepsis Action Taken by Nursing No Action Required 04/15/25 14:20 04/15/25 14:30 04/15/25 15:28 Temperature 36.6 C Temperature Source Oral Pulse Rate 59 L 47 L Pulse Rate [Bilateral Apical] 56 L Respiratory Rate 18 18 15 Respiratory Effort / Characteristics Non-Labored Spontaneous Respiratory Depth Normal Respiratory Pattern Regular Blood Pressure 132/67 146/74 H Blood Pressure [Right Arm] 172/80 H Blood Pressure Mean 86 95 Blood Pressure Mean [Right Arm] 110 Blood Pressure Position [Right Arm] Lying Pulse Oximetry 97 95 98 Oxygen Delivery Method Room Air Sepsis Recent Fever Within 48 Hours Sepsis New/Unexplained Change in Mental Status Sepsis Action Taken by Nursing Laboratory Data Attestation: I reviewed the patient's lab results. 04/15/25 12:35 04/15/25 12:35 Lab Results 04/15/25 04/15/25 Range/Units 12:35 12:54 WBC 6.88 (4.8-10.8) K/ul RBC 4.33 L (4.70-6.10) M/uL Hgb 13.6 L (14.0-18.0) g/dl POC Hgb 12.9 L (14.0-18.0) g/dl Hct 38.7 L (42.0-52.0) % POC Hct 38 L (42-52) % MCV 89.4 (80.0-100.0) fL MCH 31.4 (25.0-34.0) pg MCHC 35.1 (32.0-36.0) g/dL RDW Std Deviation 42.7 (36.4-46.3) fL RDW Coeff of Nathanael 13.0 (11.5-14.5) % Plt Count 230 (130-400) K/uL MPV 9.4 (9.4-12.4) fL Immature Gran % (Auto) 0.1 % Neut % (Auto) 55.7 % Lymph % (Auto) 32.8 % [place] % (Auto) 6.8 % Eos % (Auto) 4.5 % Baso % (Auto) 0.1 % Neut # (Auto) 3.82 (1.40-6.50) K/uL Lymph # (Auto) 2.26 (1.20-3.40) K/uL [place] # (Auto) 0.47 (0.11-0.59) K/uL Eos # (Auto) 0.31 (0.00-0.50) K/uL Baso # (Auto) 0.01 (0.00-0.20) K/uL Immature Gran # (Auto) 0.01 (0.01-0.20) K/uL PT 10.3 (9.0-12.0) Seconds INR 0.9 (0.9-1.1) POC Sodium 139 (135-144) mmol/L Sodium 137 (136-145) mmol/L POC Potassium 3.5 (3.3-5.0) mmol/L Potassium 3.6 (3.5-5.1) mmol/L POC Chloride 105 (101-112) mmol/L Chloride 105 (98-107) mmol/L Carbon Dioxide 24 (21-32) mmol/L POC Total CO2 23 L (24-31) mmol/L Anion Gap 8 (3-11) POC Anion Gap 16.0 (16-25) mmol/L POC BUN 28 H (7-18) mg/dl BUN 31 H (6-23) mg/dl Creatinine 1.01 (0.6-1.4) mg/dl POC Creatinine 1.1 (0.6-1.3) mg/dl Est Cr Clr Drug Dosing Not Reportable eGFR 79.02 BUN/Creatinine Ratio 30.7 H (10-20) Glucose 101 H (70-99(Fasting)) mg/dl POC Glucose (other) 100 H (70-99) mg/dl Calcium 8.9 (8.6-10.3) mg/dl POC Ioniz Calcium Ricardo 1.16 (1.12-1.32) mmol/l Phosphorus 3.1 (2.5-4.9) mg/dl Magnesium 2.1 (1.7-2.4) mg/dl Total Bilirubin 0.5 (0.2-1.0) mg/dl AST 20 (13-39) U/L ALT 18 (7-52) U/L Alkaline Phosphatase 94 (34-104) U/L Troponin I High Sens 3.5 (0-20) pg/ml Total Protein 7.2 (6.0-8.3) gm/dl Albumin 4.0 (3.4-5.0) gm/dl Globulin 3.2 (2.5-4.0) gm/dl Albumin/Globulin Ratio 1.3 (0.9-2) Lipase 38 (11-82) U/L TSH 0.349 (0.300-4.500) uIu/ml Lyme Disease Screen Positive H (Negative) Lyme Tier 2 IgG Confirm Positive H (Negative) Lyme Tier 2 IgM Confirm Positive H (Negative) Administered Medications Acetaminophen (Acetaminophen 325 Mg Tab) 650 mg PO Q4H PRN PRN Reason: Pain or Fever Stop: 05/15/25 17:39 Last Admin: 04/16/25 01:30 Dose: 650 mg Documented By: LUIS Discontinued Medications Aspirin (Aspirin Chew 324 Mg) 324 mg PO NOW STA Stop: 04/15/25 14:53 Last Admin: 04/15/25 15:58 Dose: 324 mg Documented By: BERTIN Sodium Chloride (Nss) 1,000 mls @ 999 mls/hr IV .Q1H1M ONE Stop: 04/15/25 13:31 Last Infusion: 04/15/25 14:21 Dose: Infused Documented By: Admin: 04/15/25 12:38 Dose: 999 mls/hr Documented By: REENA Acetaminophen (Ofirmev) 1,000 mg in 100 mls @ 400 mls/hr IV NOW STA Stop: 04/15/25 12:45 Last Infusion: 04/15/25 14:21 Dose: Infused Documented By: Admin: 04/15/25 12:38 Dose: 400 mls/hr Documented By: REENA Sodium Chloride (Nss) 1,000 mls @ 999 mls/hr IV .Q1H1M ANDREA Stop: 04/15/25 18:40 Last Infusion: 04/15/25 19:45 Dose: Infused Documented By: Admin: 04/15/25 18:28 Dose: 999 mls/hr Documented By: JUNG Ioversol (Optiray 320 125ml) 119 ml IV ONCE ONE Stop: 04/15/25 13:58 Last Admin: 04/15/25 13:57 Dose: 119 ml Documented By: MABLE Ondansetron HCl (Ondansetron Inj 2 Mg/Ml 2 Ml Vial) 4 mg IV NOW STA Stop: 04/15/25 12:34 Last Admin: 04/15/25 12:37 Dose: 4 mg Documented By: REENA Imaging Data Radiologist's Impression: Chest CTA 04/15/25 12:25 CT angio chest dissec wo/w con CT DOSE: 4612.46 mGy.cm HISTORY: 74 years-old Male with left chest, neck, scapular pain. Acute left- sided chest pain TECHNIQUE: Multiple CTA images of the chest were obtained after the intravenous administration of 119 ml Optiray. Coronal and sagittal MIPS were obtained from the axial data set and were submitted for review. All measurements were obtained according to NASCET criteria. A dose lowering technique was utilized adhering to the principles of ALARA. COMPARISON: Chest x-ray same day. FINDINGS: CTA: Mild cardiomegaly. No pericardial effusion. Mild/moderate coronary artery calcifications. Mild fusiform dilation of the ascending thoracic aorta at the level of the main pulmonary artery measures 4.0 x 3.9 cm without dissection or intramural hematoma. Minimal atherosclerosis. No central pulmonary emboli are seen. CT CHEST: Multinodular thyroid with superior mediastinal extension. Partially calcified mediastinal and hilar lymph nodes are mildly enlarged measuring up to 1.2 cm in short axis. Subcarinal station. No pneumothorax, pleural effusion, airspace consolidation or pulmonary edema. Mild dependent subsegmental bibasilar atelectasis. There are no suspicious pulmonary nodules or masses seen. Mild left basilar bronchial wall thickening. No acute upper abdominal abnormality. Cholelithiasis. Unremarkable soft tissues. No acute fracture. 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 IMPRESSION: 1. Cardiomegaly with mild fusiform dilation of the ascending thoracic aorta measuring 4 cm. No dissection. 2. No central pulmonary emboli. 3. No pleural effusion or airspace consolidation. 4. Mildly enlarged and partially calcified mediastinal and hilar lymph nodes likely represent chronic granulomatous disease. 5. Thyroid goiter. ACT 112: Negative or not required by law. The above report was generated using voice recognition software. It may contain grammatical, syntax or spelling errors. Electronically signed by: Rashad Hernandez M.D. 04/15/2025 2:[address] 04/15/25 12:31 CT angio head w con, CT head/brain wo con, CT angio neck with con CLINICAL HISTORY: 74 years-old Male with left chest, neck, scapular pain. Acute neck and chest pain COMPARISON STUDY: Head CT 02/13/2025 TECHNIQUE: Unenhanced axial CT scan of the brain is performed. Subsequently, following the IV administration of 119 cc of Optiray, CT angiogram of the head and neck was performed from the aortic arch to the skull apex. Images are reviewed in the axial, sagittal, and coronal planes. 3-D MIPS images are created and assessed. IV contrast was administered without complication. All measurements were obtained according to NASCET criteria. A dose lowering technique was utilized adhering to the principles of ALARA. FINDINGS: CT BRAIN: There is no acute intracranial hemorrhage, midline shift, hydrocephalus, intracranial mass, territorial ischemia or abnormal extra-axial collections. No abnormal intra-axial or extra-axial enhancement. Involutional changes with probable underlying mild chronic microvascular ischemic disease. Mastoid air cells and middle ear cavities are clear. No calvarial fracture. Paranasal sinuses are clear. CT ANGIOGRAM OF THE HEAD AND NECK: Common carotid arteries are patent. Atherosclerosis of the carotid bulbs without significant stenosis. The bilateral anterior and middle cerebral arteries are also patent. The vertebrobasilar system and posterior cerebral arteries are widely patent. There is no aneurysm, high-grade stenosis, or proximal branch occlusion identified. Dural sinuses appear patent. No pneumothorax. Thyroid goiter with mediastinal extension. No acute fracture. IMPRESSION: 1. No acute intracranial abnormality. 2. Atherosclerosis without aneurysm, dissection, high-grade stenosis or arterial occlusion. ACT 112: Negative or not required by law. The above report was generated using voice recognition software. It may contain grammatical, syntax or spelling errors. Electronically signed by: Rashad Hernandze M.D. 04/15/2025 2:24 PM Head CTA 04/15/25 12:31 CT angio head w con, CT head/brain wo con, CT angio neck with con CLINICAL HISTORY: 74 years-old Male with left chest, neck, scapular pain. Acute neck and chest pain COMPARISON STUDY: Head CT 02/13/2025 TECHNIQUE: Unenhanced axial CT scan of the brain is performed. Subsequently, following the IV administration of 119 cc of Optiray, CT angiogram of the head and neck was performed from the aortic arch to the skull apex. Images are reviewed in the axial, sagittal, and coronal planes. 3-D MIPS images are created and assessed. IV contrast was administered without complication. All measurements were obtained according to NASCET criteria. A dose lowering technique was utilized adhering to the principles of ALARA. FINDINGS: CT BRAIN: There is no acute intracranial hemorrhage, midline shift, hydrocephalus, intracranial mass, territorial ischemia or abnormal extra-axial collections. No abnormal intra-axial or extra-axial enhancement. Involutional changes with probable underlying mild chronic microvascular ischemic disease. Mastoid air cells and middle ear cavities are clear. No calvarial fracture. Paranasal sinuses are clear. CT ANGIOGRAM OF THE HEAD AND NECK: Common carotid arteries are patent. Atherosclerosis of the carotid bulbs without significant stenosis. The bilateral anterior and middle cerebral arteries are also patent. The vertebrobasilar system and posterior cerebral arteries are widely patent. There is no aneurysm, high-grade stenosis, or proximal branch occlusion identified. Dural sinuses appear patent. No pneumothorax. Thyroid goiter with mediastinal extension. No acute fracture. IMPRESSION: 1. No acute intracranial abnormality. 2. Atherosclerosis without aneurysm, dissection, high-grade stenosis or arterial occlusion. ACT 112: Negative or not required by law. The above report was generated using voice recognition software. It may contain grammatical, syntax or spelling errors. Electronically signed by: Rashad Hernandez M.D. 04/15/2025 2:24 PM Neck CTA 04/15/25 12:31 CT angio head w con, CT head/brain wo con, CT angio neck with con CLINICAL HISTORY: 74 years-old Male with left chest, neck, scapular pain. Acute neck and chest pain COMPARISON STUDY: Head CT 02/13/2025 TECHNIQUE: Unenhanced axial CT scan of the brain is performed. Subsequently, following the IV administration of 119 cc of Optiray, CT angiogram of the head and neck was performed from the aortic arch to the skull apex. Images are reviewed in the axial, sagittal, and coronal planes. 3-D MIPS images are created and assessed. IV contrast was administered without complication. All measurements were obtained according to NASCET criteria. A dose lowering technique was utilized adhering to the principles of ALARA. FINDINGS: CT BRAIN: There is no acute intracranial hemorrhage, midline shift, hydrocephalus, intracranial mass, territorial ischemia or abnormal extra-axial collections. No abnormal intra-axial or extra-axial enhancement. Involutional changes with probable underlying mild chronic microvascular ischemic disease. Mastoid air cells and middle ear cavities are clear. No calvarial fracture. Paranasal sinuses are clear. CT ANGIOGRAM OF THE HEAD AND NECK: Common carotid arteries are patent. Atherosclerosis of the carotid bulbs without significant stenosis. The bilateral anterior and middle cerebral arteries are also patent. The vertebrobasilar system and posterior cerebral arteries are widely patent. There is no aneurysm, high-grade stenosis, or proximal branch occlusion identified. Dural sinuses appear patent. No pneumothorax. Thyroid goiter with mediastinal extension. No acute fracture. IMPRESSION: 1. No acute intracranial abnormality. 2. Atherosclerosis without aneurysm, dissection, high-grade stenosis or arterial occlusion. ACT 112: Negative or not required by law. The above report was generated using voice recognition software. It may contain grammatical, syntax or spelling errors. Electronically signed by: Rashad Hernandez M.D. 04/15/2025 2:24 PM Discharge Plan Visit Data Chief Complaint: Back Injury/Pain Stated Complaint: ILLNESS ED Provider: Rafi Ambrocio Discharge Problem: Exertional chest pain, Neck pain, Ascending aorta dilation, Acute upper back pain Patient Disposition: Admitted As Inpatient Condition: Fair Discharge Instructions Interventions: ED Discharge Assessment Last Done: 04/15/25 17:01
[2025-04-15 12:50] LABS: Hematocrit (blood only) 38.7 % (42.0-52.0); Hemoglobin 13.6 g/dl (14.0-18.0); Immature Granulocytes # (auto) 0.01 K/uL (0.01-0.20); Immature Granulocytes % (auto) 0.1 %; Mean Corpuscular Hemoglobin 31.4 pg (25.0-34.0); Mean Corpuscular Volume 89.4 fL (80.0-100.0); Platelet Count 230 K/uL (130-400); RDW Standard Deviation 42.7 fL (36.4-46.3); Red Blood Count 4.33 M/uL (4.70-6.10); White Blood Count 6.88 K/ul (4.8-10.8)
--- NOTE | 2025-04-15 13:08 | XRay Report ---
XR chest 1V portable CLINICAL HISTORY: Chest pain, nonspecific COMPARISON STUDY: 02/13/2025 FINDINGS: Stable mild cardiomegaly without pulmonary vascular congestion. No consolidation or pleural effusion. No pneumothorax. IMPRESSION: No acute findings. ACT 112: Negative or not required by law. Electronically signed by: Srinivas Penn M.D. 04/15/2025 1:07 PM
[2025-04-15 13:12] LABS: Alanine Aminotransferase 18 U/L (7-52); Albumin Globulin Ratio 1.3 (0.9-2); Alkaline Phosphatase 94 U/L (34-104); Anion Gap 8 (3-11); Bilirubin,Total 0.5 mg/dl (0.2-1.0); Blood Urea Nitrogen 31 mg/dl (6-23); Calcium 8.9 mg/dl (8.6-10.3); Carbon Dioxide 24 mmol/L (21-32); Chloride 105 mmol/L (98-107); Globulin 3.2 gm/dl (2.5-4.0); Glucose 101 mg/dl (70-99(Fasting)); Lipase 38 U/L (11-82); Magnesium 2.1 mg/dl (1.7-2.4); Potassium 3.6 mmol/L (3.5-5.1); Sodium 137 mmol/L (136-145); Total Protein 7.2 gm/dl (6.0-8.3)
[2025-04-15 13:17] LABS: INR 0.9 (0.9-1.1); Prothrombin Time 10.3 Seconds (9.0-12.0)
[2025-04-15 13:25] LABS: Thyroid Stimulating Hormone 0.349 uIu/ml (0.300-4.500)
[2025-04-15] MEDS: OPTIRAY 320 125ml IV ONE (13:57)
--- NOTE | 2025-04-15 14:27 | CT Scan Report ---
CT angio head w con, CT head/brain wo con, CT angio neck with con CLINICAL HISTORY: 74 years-old Male with left chest, neck, scapular pain. Acute neck and chest moshe n COMPARISON STUDY: Head CT 02/13/2025 TECHNIQUE: Unenhanced axial CT scan of the brain is performed. Subsequently, following the IV adminis tration of 119 cc of Optiray, CT angiogram of the head and neck was performed from the aortic arch to the skull apex. Images are reviewed in the axial, sagittal, and coronal planes. 3-D MIPS images are created and assessed. IV contrast was administered without complication. All measurements were obtain ed according to NASCET criteria. A dose lowering technique was utilized adhering to the principles of ALARA. FINDINGS: CT BRAIN: There is no acute intracranial hemorrhage, midline shift, hydrocephalus, intracranial mass, territori al ischemia or abnormal extra-axial collections. No abnormal intra-axial or extra-axial enhancement. Involutional changes with probable underlying mild chronic microvascular ischemic disease. Mastoid ai r cells and middle ear cavities are clear. No calvarial fracture. Paranasal sinuses are clear. CT ANGIOGRAM OF THE HEAD AND NECK: Common carotid arteries are patent. Atherosclerosis of the carotid bulbs without significant stenosis . The bilateral anterior and middle cerebral arteries are also patent. The vertebrobasilar system and posterior cerebral arteries are widely patent. There is no aneurysm, high-grade stenosis, or proxima l branch occlusion identified. Dural sinuses appear patent. No pneumothorax. Thyroid goiter with mediastinal extension. No acute fracture. IMPRESSION: 1. No acute intracranial abnormality. 2. Atherosclerosis without aneurysm, dissection, high-grade stenosis or arterial occlusion. ACT 112: Negative or not required by law. The above report was generated using voice recognition software. It may contain grammatical, syntax o r spelling errors. Electronically signed by: Rashad Hernandez M.D. 04/15/2025 2:24 PM
--- NOTE | 2025-04-15 14:36 | CT Scan Report ---
CT angio chest dissec wo/w con CT DOSE: 4612.46 mGy.cm HISTORY: 74 years-old Male with left chest, neck, scapular pain. Acute left-sided chest pain TECHNIQUE: Multiple CTA images of the chest were obtained after the intravenous administration of 119 ml Optiray. Coronal and sagittal MIPS were obtained from the axial data set and were submitted for review. All measurements were obtained according to NASCET criteria. A dose lowering technique was u tilized adhering to the principles of ALARA. COMPARISON: Chest x-ray same day. FINDINGS: CTA: Mild cardiomegaly. No pericardial effusion. Mild/moderate coronary artery calcifications. Mild fusifo rm dilation of the ascending thoracic aorta at the level of the main pulmonary artery measures 4.0 x 3.9 cm without dissection or intramural hematoma. Minimal atherosclerosis. No central pulmonary embol i are seen. CT CHEST: Multinodular thyroid with superior mediastinal extension. Partially calcified mediastinal and hilar l ymph nodes are mildly enlarged measuring up to 1.2 cm in short axis. Subcarinal station. No pneumotho rax, pleural effusion, airspace consolidation or pulmonary edema. Mild dependent subsegmental bibasil ar atelectasis. There are no suspicious pulmonary nodules or masses seen. Mild left basilar bronchial wall thickening. No acute upper abdominal abnormality. Cholelithiasis. Unremarkable soft tissues. No acute fracture. O steoarthritis of the shoulders with multilevel changes of the spine. IMPRESSION: 1. Cardiomegaly with mild fusiform dilation of the ascending thoracic aorta measuring 4 cm. No dissec tion. 2. No central pulmonary emboli. 3. No pleural effusion or airspace consolidation. 4. Mildly enlarged and partially calcified mediastinal and hilar lymph nodes likely represent chronic granulomatous disease. 5. Thyroid goiter. ACT 112: Negative or not required by law. The above report was generated using voice recognition software. It may contain grammatical, syntax o r spelling errors. Electronically signed by: Rashad Hernandez M.D. 04/15/2025 2:35 PM
--- NOTE | 2025-04-15 15:33 | History & Physical Report ---
Date of Service April 15, 2025 Assessment & Plan (1) Exertional angina: (2) Hypertension: (3) Hypercholesteremia: Plan Jacoby is a pleasant 74-year-old man with past medical history of hypertension, dyslipidemia, prostate cancer s/p prostatectomy, sleep apnea (on CPAP), and obesity. He presented with exertional chest, neck, back pain that began 04/14 then improved/resolved, but ultimately returned and he presented to the hospital via EMS. This chest pain was provoked by exertion and improved with rest. He was admitted for cardiac workup. #Exertional angina - he does have a history of exertional angina. He had cardiac stress echo in December 2020, which was negative for ischemia but only obtained 66% MPHR. He then underwent cardiac catheterization in January 2021 that showed no significant CAD, elevated left-sided filling pressure, no significant aortic stenosis. - Chest CTA on admission reveals mild fusiform dilation of the ascending thoracic aorta measuring 4 cm, no dissection. CXR, head CT, head CTA, neck CTA unremarkable for acute processes - EKG without ischemic changes - Troponin negative at 3.5, repeat 5.2. Will also repeat with AM labs - Echocardiogram ordered, pending - Bradycardia appears somewhat chronic, but will check Lyme testing - pending - Clinically dry on exam - 1 L NSS bolus x 1 - Monitor on telemetry #Hypertensioncontinue atenolol 50 mg daily, HCTZ 50 mg daily, lisinopril 40 mg daily, amlodipine 2.5 mg daily #Hyperlipidemiacontinue Lipitor 40 mg daily #Obesitycontinue Topamax 100 mg HS #OSACPAP HS VTE PPx: low risk, anticipate short LOS, encourage ambulation Dispo: observation on med tele Reviewed outpatient records Updated at bedside on admission History of Present Illness Chief Complaint: exertional chest, neck and back pain Primary Care Provider: Nola Jauregui MD Jacoby is a pleasant 74-year-old man with past medical history of hypertension, dyslipidemia, prostate cancer s/p prostatectomy, sleep apnea (on CPAP), and obesity. He presented to the ED via EMS from the [facility] with exertional chest, neck, and back pain. At the time of my exam, the patient was lying in bed in no acute distress with his present. He states he works all of the [employer] and is in charge of all of the money for [employer]. He has been working yesterday and today. Yesterday, he had the same symptoms of exertional chest pain, back pain between his scapula, and pain radiating up the left side of his neck. This improved with rest and eventually resolved. He reports the pain returned today and was worried so he went to the EMS tent, who brought him to the ED. He reports 6/10 pain at its worst, 2/10 at this time. He denies any exertional shortness of breath, shortness of breath at rest, heart palpitations, dizziness, lightheadedness, presyncope, nausea, abnormal bleeding, or urinary symptoms. He does not use supplemental oxygen at baseline, but does wear CPAP at night. Vitals on admission significant for hypertension with BP 172/80, mild bradycardia with HR 56 (baseline); vitals otherwise stable. Labs on admission are significant for mild anemia with Hgb 13.6, elevated BUN at 31. No leukocytosis. Electrolytes stable. Liver enzymes, lipase, and TSH normal. Troponin negative at 3.5. Chest CTA on admission reveals mild fusiform dilation of the ascending thoracic aorta measuring 4 cm, no dissection. CXR, head CT, head CTA, neck CTA unremarkable for acute processes. We discussed code status, patient wishes to be a full code. Allergies Allergy/AdvReac Type Severity Reaction Status Date / Time No Known Allergies Allergy Verified 02/14/25 13:05 Home Medications Medication Instructions Recorded Confirmed Type cholecalciferol (vitamin D3) 50 2,000 units PO QPM 08/23/20 04/15/25 History mcg (2,000 unit) capsule atenolol 50 mg tablet 50 mg PO QAM #90 tabs 06/30/24 04/15/25 Rx atorvastatin 40 mg tablet (Lipitor) 40 mg PO DAILY #90 tabs 09/13/24 04/15/25 Rx topiramate 100 mg tablet (Topamax) 100 mg PO DAILY #90 tabs 11/15/24 04/15/25 Rx meclizine 25 mg tablet 25 mg PO TID PRN dizziness #30 tabs 02/14/25 04/15/25 Rx lisinopril 40 mg tablet 40 mg PO QAM #90 tabs 02/22/25 04/15/25 Rx amlodipine 2.5 mg tablet 2.5 mg PO DAILY 90 days #90 tabs 03/29/25 04/15/25 Rx hydrochlorothiazide 50 mg tablet 50 mg PO DAILY 90 days #90 tabs 03/29/25 04/15/25 Rx tirzepatide (weight loss) 2.5 0 mg subcut .q7days 04/15/25 04/15/25 History mg/0.5 mL subcutaneous pen injector (Zepbound) Past Med/Surg History Problem List (Updated 04/15/25 @ 15:40 by Nancy Guzman PA-C) Exertional angina Sensorineural hearing loss (SNHL) of both ears Morbid obesity due to excess calories Tendonitis of left rotator cuff Nocturnal hypoxemia Trochanteric bursitis, left hip Osteoarthritis of left knee Trochanteric bursitis of right hip Radicular low back pain Osteoarthritis of right hip Vertigo Onychomycosis Hypertrophic toenail Family history of colon cancer Hypercholesteremia (Chronic) Primary osteoarthritis, left shoulder (Acute) Polyp of colon (Acute) Male erectile disorder of organic origin (Acute) Lumbar canal stenosis (Acute) Internal hemorrhoids (Acute) Impaired fasting glucose (Chronic) Hypertension (Chronic) Hx of prostatic malignancy (Acute ~2004) Status post radical prostatectomy and XRT, diagnosed age 54 Mild obstructive sleep apnea Osteoarthritis of right shoulder Medical History Vitamin D deficiency Spinal stenosis Osteoarthritis History of prostate cancer 15 years ago - treated surgically Hyperlipidemia HTN (hypertension) Sleep apnea CPAP Diverticulosis Surgical History History of tooth extraction History of arthroscopy of right knee History of arthroscopy of left knee History of colonoscopy History of radical retropubic prostatectomy (~2004) Family History Father Colon carcinoma Mother Myocardial infarction Breast cancer Brother Prostate cancer Brother Stroke Other Cancer Colorectal cancer Diabetes No family history of adverse response to anesthesia Denies family history of Ovarian cancer Social History Smoking Status: Never smoker Second Hand Exposure: Yes (Pt worked with a man that smoked a lot.); Do You Dip or Chew Tobacco: No; Hx Alcohol Use: Yes Alcohol type: beer Alcohol Intake Frequency: Monthly or Less Hx Substance Use: No Preferred Language: Czech Communication Ability: Effective Visual Impairment: No Limitations Hearing Ability: Use of Hearing Aid 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 Beliefs That Will Affect Care: None marital status: Current Living Situation: Spouse current occupational status: retired current occupation: used to work with the [employer] [place] Feels Safe at Home: Yes Childhood Exposure to Second-Hand Smoke: Yes Diet: regular caffeine: Yes during the past year weight has: remained stable Dental Care, Regularly: Yes Physical Activity Frequency: Does not Exercise Seatbelt Use: always Sunscreen Use: No Assistive Devices: Cane, Glasses and Hearing Aid - Bilateral Review of Systems Review of Systems: All systems reviewed & are unremarkable except as noted in Subjective Physical Exam Physical Exam: General: No acute distress, nondiaphoretic, well-developed, well-nourished. Skin: Warm, dry. No rashes or peripheral edema noted. Mucous membranes slightly dry. Cardiac: Regular rate and rhythm without murmurs gallops or rubs. Pulm: Clear to auscultation bilaterally without wheezes, rales or rhonchi. Normal respiratory effort. 96% on room air. Abdominal: Soft, nontender, nondistended. Bowel sounds present. Neuro: A&O x3. No focal neurological deficits. Back: Mild paraspinal tenderness to palpation around T4. Results & Data Results & Data Vital Signs (Past 12 Hours) Vital Signs Temp Pulse Pulse Resp BP BP Pulse Ox 04/15/25 15:28 97.9 F 56 L 15 172/80 H 98 04/15/25 14:30 47 L 18 146/74 H 95 04/15/25 14:20 59 L 18 132/67 97 04/15/25 13:40 53 L 04/15/25 13:30 59 L 18 148/74 H 96 04/15/25 12:08 98.2 F 55 L 18 131/75 96 O2 Del Method 04/15/25 15:28 Room Air 04/15/25 14:30 04/15/25 14:20 04/15/25 13:40 04/15/25 13:30 04/15/25 12:08 Room Air Laboratory Results Reviewed CBC with differential Reviewed coags Reviewed CMP, chemistries Diagnostic Findings Reviewed chest CTA Reviewed CXR Reviewed head CT Reviewed head CTA Reviewed neck CTA Supervising Physician Co-Signing Physician Notes Patient was seen and examined independently I discussed the case with Nancy Guzman, PAC I reviewed pertinent past medical social family history and also the plan of care and agree with the plan of care. Pt developed atypical neck and upper back pain while working at the [employer], did have work up in ER with negative troponin, neg CTA ( except for asc aortic dilation 4 cm), pt did have a cardiac cath in 2020 without significant disease. PT is currently without discomfort, will observe overnight trend troponins and check ECHO exam with regular heart no murmur, lungs are clear atypical pain for cardiac origin, will follow overnight Any exceptions will be noted below PG Care Time/CCT Total # of Minutes Spent Total Time Spent with Patient: Total time spent is greater than 50% in coordination of care (as documented) at patient's floor/unit and/or counseling patient: Coding Level of Care Code 75098 INT INP/OBS CARE 3/75MIN Diagnoses Exertional angina I20.89 Hypertension I10 Hypercholesteremia E78.00
[2025-04-15] MEDS: ASPIRIN CHEW 324 MG PO STA (15:58)
[2025-04-15] MEDS ORDERED: ALUMINUM/MAGNESIUM SUSP 30 ML UDC PO PRN (17:40)
[2025-04-15] MEDS ORDERED: ONDANSETRON INJ 2 MG/ML 2 ML VIAL IV PRN (17:40)
[2025-04-15] MEDS: SODIUM CHLORIDE 0.9% 1,000 ML IV SCH (18:28)
[2025-04-15 20:13] LABS: Lyme Screen Rflx Confirmation Positive (Negative)
[2025-04-15 20:49] LABS: Lyme Ab IgG 2nd Tier Confirm Positive (Negative); Lyme Ab IgM 2nd Tier Confirm Positive (Negative)
[2025-04-15 22:59] LABS: Appearance Urine Clear (Clear); Glucose Urine UA Negative (Negative)
[2025-04-16] MEDS: ACETAMINOPHEN 325 MG TAB PO PRN (01:30)
[2025-04-16 07:41] LABS: Hematocrit (blood only) 37.0 % (42.0-52.0); Hemoglobin 13.3 g/dl (14.0-18.0); Mean Corpuscular Hemoglobin 32.0 pg (25.0-34.0); Mean Corpuscular Volume 89.2 fL (80.0-100.0); Platelet Count 204 K/uL (130-400); RDW Standard Deviation 42.0 fL (36.4-46.3); Red Blood Count 4.15 M/uL (4.70-6.10); White Blood Count 6.24 K/ul (4.8-10.8)
[2025-04-16 09:06] LABS: Anion Gap 7.0 (3-11); Blood Urea Nitrogen 22.0 mg/dl (6-23); Calcium 8.6 mg/dl (8.6-10.3); Carbon Dioxide 23.0 mmol/L (21-32); Chloride 109.0 mmol/L (98-107); Creatinine Clr Calc Pharmacy 98.3 ml/min; Glucose 88.0 mg/dl (70-99(Fasting)); Potassium 4.1 mmol/L (3.5-5.1); Sodium 139.0 mmol/L (136-145)
[2025-04-16] MEDS: ATENOLOL 50 MG TABLET PO SCH (09:31)
[2025-04-16] MEDS: hydroCHLOROthiazide 25 MG TAB PO SCH (09:31)
[2025-04-16] MEDS: ATORVASTATIN 40 MG TAB PO SCH (09:35)
[2025-04-16] MEDS: TOPIRAMATE 100 MG TAB PO SCH (09:35)
[2025-04-16] MEDS: POLYETHYLENE (MIRALAX) 17 GM PACK PO PRN (09:44)
[2025-04-16] MEDS: DOXYCYCLINE HYCLATE 100 MG CAP PO SCH (09:59)
--- NOTE | 2025-04-16 10:43 | Discharge Summary ---
Discharge Summary Date of Service April 16, 2025 Principal Dx & Hospital Course #1 = Principal Diagnosis (1) Exertional angina: (2) Lyme disease: (3) Hypertension: (4) Hypercholesteremia: Shlomo Dozier is a pleasant 74-year-old man with past medical history of hypertension, dyslipidemia, prostate cancer s/p prostatectomy, sleep apnea (on CPAP), and obesity. He presented with exertional chest, neck, back pain that began 04/14 then improved/resolved, but ultimately returned and he presented to the hospital via EMS. This chest pain was provoked by exertion and improved with rest. He was admitted for cardiac workup. #Exertional angina - he does have a history of exertional angina. He had cardiac stress echo in December 2020, which was negative for ischemia but only obtained 66% MPHR. He then underwent cardiac catheterization in January 2021 that showed no significant CAD, elevated left-sided filling pressure, no significant aortic stenosis. - Chest CTA on admission reveals mild fusiform dilation of the ascending thoracic aorta measuring 4 cm, no dissection. CXR, head CT, head CTA, neck CTA unremarkable for acute processes - EKG without ischemic changes; 1st degree AV block noted - present since at least 2019 - Troponin negative at 3.5 -> 5.2 -> 4.6 - Echocardiogram completed, report pending. Low suspicion for emergent abnormality so patient was discharged prior to final report. Informed patient I will call him if there is an emergent abnormality found, otherwise he can discuss the results with his PCP at his follow-up appointment - Clinically dry on admission, s/p 1 L NSS bolus x 1 - Telemetry monitoring revealed NSR bradycardia in 50s with 1st degree AV block - No chest/back/neck pain on day of discharge #Lyme Disease - Lyme screen, IgG, IgM all positive - EKG and telemetry monitoring with first-degree AV block however this is chronic since at least 2020 which is the oldest EKG in our system - Doxycycline 100 mg BID x 10 days. Patient was educated on photosensitivity and GI side effects associated with doxycycline #Hypertensioncontinue atenolol 50 mg daily, HCTZ 50 mg daily, lisinopril 40 mg daily, amlodipine 2.5 mg daily #Hyperlipidemiacontinue Lipitor 40 mg daily #Obesitycontinue Topamax 100 mg HS #OSACPAP HS VTE PPx: low risk, short LOS, ambulation Dispo: Discharged home 04/16 Notes For Next Care Provider Reviewed echocardiogram results with patient Medication Changes From Visit Doxycycline 100 mg twice daily x 10 days Admission HPI Per Admitting Provider Jacoby is a pleasant 74-year-old man with past medical history of hypertension, dyslipidemia, prostate cancer s/p prostatectomy, sleep apnea (on CPAP), and obesity. He presented to the ED via EMS from the [employer] with exertional chest, neck, and back pain. At the time of my exam, the patient was lying in bed in no acute distress with his present. He states he works all of the [employer] and is in charge of all of the money for [employer]. He has been working yesterday and today. Yesterday, he had the same symptoms of exertional chest pain, back pain between his scapula, and pain radiating up the left side of his neck. This improved with rest and eventually resolved. He reports the pain returned today and was worried so he went to the EMS tent, who brought him to the ED. He reports 6/10 pain at its worst, 2/10 at this time. He denies any exertional shortness of breath, shortness of breath at rest, heart palpitations, dizziness, lightheadedness, presyncope, nausea, abnormal bleeding, or urinary symptoms. He does not use supplemental oxygen at baseline, but does wear CPAP at night. Vitals on admission significant for hypertension with BP 172/80, mild bradycardia with HR 56 (baseline); vitals otherwise stable. Labs on admission are significant for mild anemia with Hgb 13.6, elevated BUN at 31. No leukocytosis. Electrolytes stable. Liver enzymes, lipase, and TSH normal. Troponin negative at 3.5. Chest CTA on admission reveals mild fusiform dilation of the ascending thoracic aorta measuring 4 cm, no dissection. CXR, head CT, head CTA, neck CTA unremarkable for acute processes. We discussed code status, patient wishes to be a full code. Discharge Exam General: No acute distress, nondiaphoretic, well-developed, well-nourished. Skin: Warm, dry. No rashes or peripheral edema noted. Cardiac: Regular rate and rhythm without murmurs gallops or rubs. Pulm: Clear to auscultation bilaterally without wheezes, rales or rhonchi. Normal respiratory effort. 96% on room air. Abdominal: Soft, nontender, nondistended. Bowel sounds present. Neuro: A&O x3. No focal neurological deficits. Back: Mild paraspinal tenderness to palpation around T4. Discharge Plan Discharge Items Patient Disposition: Home - Self-Care Reason For Visit: CHEST PAIN Discharge Diagnosis: Noncardiac chest pain, positive Lyme disease Condition on Discharge: Fair Activity: Per Instructions section Non-emergency contact: Primary Care Provider Call non-emergency contact if: you have any medication questions and your symptoms worsen Follow-up/Referrals: Nola Jauregui MD [Primary Care Provider] - (Follow-up in 1-2 weeks) Diet: Heart Healthy Addtl Attending Provider Instructions: Jacoby, You were admitted to the hospital for a cardiac workup after experiencing exertional chest/neck/back pain. Fortunately, your cardiac workup was unremarkable. This included an EKG, troponin (heart enzyme), chest CTA, and telemetry heart monitoring. Your chest CTA noted a mild dilation of your aorta, this can be monitored. You also had an echocardiogram (ultrasound of your heart) - we are still waiting on the report from this study, but given your cardiac workup otherwise has been negative, I do not feel that you need to stay in the hospital for this report to finalize. I will review this report when posted and call you if there are any emergent abnormalities. Otherwise, you can ask your PCP about the echocardiogram report at your follow-up appointment. You tested positive for Lyme disease. This is a tickborne illness treated with antibiotics. You were started on the antibiotic while in the hospital and will continue taking an antibiotic at home to complete the course. Upon discharge from the hospital: * Take doxycycline (oral antibiotic) twice daily x 10 days. You received your morning dose today 04/16, so you only need to take your evening dose tonight. Then starting tomorrow (04/17), take it twice daily. This antibiotic can cause side effects including GI distress and sunlight sensitivity. I recommend this antibiotic with food to prevent nausea/vomiting/diarrhea. I also recommend wearing a hat and protective clothing as well as sunscreen while taking this antibiotic. * You can continue your other home medications as prescribed. * As we discussed, you may return to work. I have provided a work note with your discharge papers to limit your working hours to 8-10 hours/day. * Please follow-up with your PCP in 1-2 weeks. Please return to the hospital if you experience any of the following: Irregular rapid heartbeat, shortness of breath, difficulty breathing, chest pain, numbness/tingling/weakness in your arms or legs, lightheadedness, dizziness, passing out, confusion, or any other symptoms concerning for you. It was a pleasure taking care of you while you were in the hospital! Pending Studies at Discharge: Yes Studies:: Echocardiogram Stand-Alone Forms: My [facility], Work/School Release, Smoking Cessation Medications and DC Order Prescriptions: New doxycycline hyclate 100 mg Capsule 100 mg PO BID Qty: 19 0RF Continued atenolol 50 mg tablet 50 mg PO QAM Qty: 90 3RF atorvastatin [Lipitor] 40 mg tablet 40 mg PO DAILY Qty: 90 3RF lisinopril 40 mg tablet 40 mg PO QAM Qty: 90 3RF amlodipine 2.5 mg tablet 2.5 mg PO DAILY 90 Days Qty: 90 4RF Hold Instructions: Home Medication placed on hold at Doctor's office hydrochlorothiazide 50 mg tablet 50 mg PO DAILY 90 Days Qty: 90 2RF topiramate [Topamax] 100 mg tablet 100 mg PO DAILY Qty: 90 3RF meclizine 25 mg tablet 25 mg PO TID PRN (Reason: dizziness) Qty: 30 2RF cholecalciferol (vitamin D3) 2,000 unit capsule 2,000 units PO QPM Patient Comments: 04/15- otc unable to verify Zepbound 2.5 mg/0.5 mL pen injector 0 mg subcut .q7days Patient Comments: 04/15- no fill history unable to verify Discharge Orders: Discharge Order (Routine); Ordered 04/16/25 Ordered By: Nancy Us/Other Patient Handouts: ED Lyme Disease, ED Tick Bite, Antibiotic T reatment Admission Data Admit Date/Time: 04/15/25 15:31 Attending Provider: Jeffrey Simon Admit Provider: Jacoby Fay Primary Care Provider: Nola Jauregui Other Providers: Jacoby Fay Hospital Stay Data Consultations 04/15/25 14:52 ED Decision to Admit Stat Diagnostic Imagining Performed Chest CTA 04/15/25 12:25 CT angio chest dissec wo/w con CT DOSE: 4612.46 mGy.cm HISTORY: 74 years-old Male with left chest, neck, scapular pain. Acute left- sided chest pain TECHNIQUE: Multiple CTA images of the chest were obtained after the intravenous administration of 119 ml Optiray. Coronal and sagittal MIPS were obtained from the axial data set and were submitted for review. All measurements were obtained according to NASCET criteria. A dose lowering technique was utilized adhering to the principles of ALARA. COMPARISON: Chest x-ray same day. FINDINGS: CTA: Mild cardiomegaly. No pericardial effusion. Mild/moderate coronary artery calcifications. Mild fusiform dilation of the ascending thoracic aorta at the level of the main pulmonary artery measures 4.0 x 3.9 cm without dissection or intramural hematoma. Minimal atherosclerosis. No central pulmonary emboli are se en. CT CHEST: Multinodular thyroid with superior mediastinal extension. Partially calcified mediastinal and hilar lymph nodes are mildly enlarged measuring up to 1.2 cm in short axis. Subcarinal station. No pneumothorax, pleural effusion, airspace consolidation or pulmonary edema. Mild dependent subsegmental bibasilar atelectasis. There are no suspicious pulmonary nodules or masses seen. Mild left basilar bronchial wall thickening. No acute upper abdominal abnormality. Cholelithiasis. Unremarkable soft tissues. No acute fracture. 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 IMPRESSION: 1. Cardiomegaly with mild fusiform dilation of the ascending thoracic aorta measuring 4 cm. No dissection. 2. No central pulmonary emboli. 3. No pleural effusion or airspace consolidation. 4. Mildly enlarged and partially calcified mediastinal and hilar lymph nodes likely represent chronic granulomatous disease. 5. Thyroid goiter. ACT 112: Negative or not required by law. The above report was generated using voice recognition software. It may contain grammatical, syntax or spelling errors. Electronically signed by: Rashad Hernandez M.D. 04/15/2025 2:35 PM Chest X-Ray 04/15/25 12:25 XR chest 1V portable CLINICAL HISTORY: Chest pain, nonspecific COMPARISON STUDY: 02/13/2025 FINDINGS: Stable mild cardiomegaly without pulmonary vascular congestion. No consolidation or pleural effusion. No pneumothorax. IMPRESSION: No acute findings. ACT 112: Negative or not required by law. Electronically signed by: Srinivas Penn M.D. 04/15/2025 1:[address] 04/15/25 12:31 CT angio head w con, CT head/brain wo con, CT angio neck with con CLINICAL HISTORY: 74 years-old Male with left chest, neck, scapular pain. Acute neck and chest pain COMPARISON STUDY: Head CT 02/13/2025 TECHNIQUE: Unenhanced axial CT scan of the brain is performed. Subsequently, following the IV administration of 119 cc of Optiray, CT angiogram of the head and neck was performed from the aortic arch to the skull apex. Images are reviewed in the axial, sagittal, and coronal planes. 3-D MIPS images are created and assessed. IV contrast was administered without complication. All measurements were obtained according to NASCET criteria. A dose lowering technique was utilized adhering to the principles of ALARA. FINDINGS: CT BRAIN: There is no acute intracranial hemorrhage, midline shift, hydrocephalus, intracranial mass, territorial ischemia or abnormal extra-axial collections. No abnormal intra-axial or extra-axial enhancement. Involutional changes with probable underlying mild chronic microvascular ischemic disease. Mastoid air cells and middle ear cavities are clear. No calvarial fracture. Paranasal sinuses are clear. CT ANGIOGRAM OF THE HEAD AND NECK: Common carotid arteries are patent. Atherosclerosis of the carotid bulbs without significant stenosis. The bilateral anterior and middle cerebral arteries are also patent. The vertebrobasilar system and posterior cerebral arteries are widely patent. There is no aneurysm, high-grade stenosis, or proximal branch occlusion identified. Dural sinuses appear patent. No pneumothorax. Thyroid goiter with mediastinal extension. No acute fracture. IMPRESSION: 1. No acute intracranial abnormality. 2. Atherosclerosis without aneurysm, dissection, high-grade stenosis or arterial occlusion. ACT 112: Negative or not required by law. The above report was generated using voice recognition software. It may contain grammatical, syntax or spelling errors. Electronically signed by: Rashad Hernandez M.D. 04/15/2025 2:24 PM Head CTA 04/15/25 12:31 CT angio head w con, CT head/brain wo con, CT angio neck with con CLINICAL HISTORY: 74 years-old Male with left chest, neck, scapular pain. Acute neck and chest pain COMPARISON STUDY: Head CT 02/13/2025 TECHNIQUE: Unenhanced axial CT scan of the brain is performed. Subsequently, following the IV administration of 119 cc of Optiray, CT angiogram of the head and neck was performed from the aortic arch to the skull apex. Images are reviewed in the axial, sagittal, and coronal planes. 3-D MIPS images are created and assessed. IV contrast was administered without complication. All measurements were obtained according to NASCET criteria. A dose lowering technique was utilized adhering to the principles of ALARA. FINDINGS: CT BRAIN: There is no acute intracranial hemorrhage, midline shift, hydrocephalus, i ntracranial mass, territorial ischemia or abnormal extra-axial collections. No abnormal intra-axial or extra-axial enhancement. Involutional changes with probable underlying mild chronic microvascular ischemic disease. Mastoid air cells and middle ear cavities are clear. No calvarial fracture. Paranasal sinuses are clear. CT ANGIOGRAM OF THE HEAD AND NECK: Common carotid arteries are patent. Atherosclerosis of the carotid bulbs without significant stenosis. The bilateral anterior and middle cerebral arteries are also patent. The vertebrobasilar system and posterior cerebral arteries are widely patent. There is no aneurysm, high-grade stenosis, or proximal branch occlusion identified. Dural sinuses appear patent. No pneumothorax. Thyroid goiter with mediastinal extension. No acute fracture. IMPRESSION: 1. No acute intracranial abnormality. 2. Atherosclerosis without aneurysm, dissection, high-grade stenosis or arterial occlusion. ACT 112: Negative or not required by law. The above report was generated using voice recognition software. It may contain grammatical, syntax or spelling errors. Electronically signed by: Rashad Hernandez M.D. 04/15/2025 2:24 PM Neck CTA 04/15/25 12:31 CT angio head w con, CT head/brain wo con, CT angio neck with con CLINICAL HISTORY: 74 years-old Male with left chest, neck, [facility] COMPARISON STUDY: Head CT 02/13/2025 TECHNIQUE: Unenhanced axial CT scan of the brain is performed. Subsequently, following the IV administration of 119 cc of Optiray, CT angiogram of the head and neck was performed from the aortic arch to the skull apex. Images are reviewed in the axial, sagittal, and coronal planes. 3-D MIPS images are created and assessed. IV contrast was administered without complication. All measurements were obtained according to NASCET criteria. A dose lowering technique was utilized adhering to the principles of ALARA. FINDINGS: CT BRAIN: There is no acute intracranial hemorrhage, midline shift, hydrocephalus, intracranial mass, territorial ischemia or abnormal extra-axial collections. No abnormal intra-axial or extra-axial enhancement. Involutional changes with probable underlying mild chronic microvascular ischemic disease. Mastoid air cells and middle ear cavities are clear. No calvarial fracture. Paranasal sinuses are clear. CT ANGIOGRAM OF THE HEAD AND NECK: Common carotid arteries are patent. Atherosclerosis of the carotid bulbs without significant stenosis. The bilateral anterior and middle cerebral arteries are also patent. The vertebrobasilar system and posterior cerebral arteries are widely patent. There is no aneurysm, high-grade stenosis, or proximal branch occlusion identified. Dural sinuses appear patent. No pneumothorax. Thyroid goiter with mediastinal extension. No acute fracture. IMPRESSION: 1. No acute intracranial abnormality. 2. Atherosclerosis without aneurysm, dissection, high-grade stenosis or arterial occlusion. ACT 112: Negative or not required by law. The above report was generated using voice recognition software. It may contain grammatical, syntax or spelling errors. Electronically signed by: Rashad Hernandez M.D. 04/15/2025 2:24 PM Pending Results Patient Have Any Pending Studies at Discharge: Yes Discharge Instructions Given to Patient (Per Discharging Provider) Jacoby, You were admitted to the hospital for a cardiac workup after experiencing exertional chest/neck/back pain. Fortunately, your cardiac workup was unremarkable. This included an EKG, troponin (heart enzyme), chest CTA, and telemetry heart monitoring. Your chest CTA noted a mild dilation of your aorta, this can be monitored. You also had an echocardiogram (ultrasound of your heart) - we are still waiting on the report from this study, but given your cardiac workup otherwise has been negative, I do not feel that you need to stay in the hospital for this report to finalize. I will review this report when posted and call you if there are any emergent abnormalities. Otherwise, you can ask your PCP about the echocardiogram report at your follow-up appointment. You tested positive for Lyme disease. This is a tickborne illness treated with antibiotics. You were started on the antibiotic while in the hospital and will continue taking an antibiotic at home to complete the course. Upon discharge from the hospital: * Take doxycycline (oral antibiotic) twice daily x 10 days. You received your morning dose today 04/16, so you only need to take your evening dose tonight. Then starting tomorrow (04/17), take it twice daily. This antibiotic can cause side effects including GI distress and sunlight sensitivity. I recommend this antibiotic with food to prevent nausea/vomiting/diarrhea. I also recommend wearing a hat and protective clothing as well as sunscreen while taking this antibiotic. * You can continue your other home medications as prescribed. * As we discussed, you may return to work. I have provided a work note with your discharge papers to limit your working hours to 8-10 hours/day. * Please follow-up with your PCP in 1-2 weeks. Please return to the hospital if you experience any of the following: Irregular rapid heartbeat, shortness of breath, difficulty breathing, chest pain, numbness/tingling/weakness in your arms or legs, lightheadedness, dizziness, passing out, confusion, or any other symptoms concerning for you. It was a pleasure taking care of you while you were in the hospital! Total Time Total Time Spent Total Time Spent (In Minutes): Greater than 30 minutes spent completing this discharge process including direct patient care, medication reconciliation, documentation, review of labs and images, and coordination of care. Coding Level of Care Code 28750 INP/OBS DISCH >30 MIN Diagnoses Exertional angina I20.89 Lyme disease A69.20 Hypertension I10 Hypercholesteremia E78.00
[2025-04-16 11:27] VITALS: BP 123/73; RESP 18; TEMP 97.5; O2SAT 96
--- NOTE | 2025-04-16 13:18 | Electrocardiogram Report ---
Test Reason : Blood Pressure : */* mmHG Vent. Rate : 55 BPM Atrial Rate : 55 BPM P-R Int : 246 ms QRS Dur : 106 ms QT Int : 448 ms P-R-T Axes : * -12 -20 degrees QTcB Int : 428 ms Sinus bradycardia with 1st degree A-V block Otherwise normal ECG When compared with ECG of 13-Feb-2025 12:01, No significant change was found Confirmed by Carlito Elise ([id number]) on 04/16/2025 1:17:39 PM Referred By: REFERRED SELF Confirmed By: Carlito Elise
[2025-04-16 14:48] VITALS: PULSE 48
--- NOTE | 2025-04-16 15:00 | XCELERA ---
[id number]
== END 2025-04-16 12:20 | disposition home or self-care (01) ==
LOC: ED 12:03 → 2W 12:03 → SUATTDRO 15:31 → 2W 17:01